=== PATIENT | male | born 1990 | race Two or more races ===

== ENCOUNTER 2021-01-27 11:58 | Emergency (ER) | payer OTHER ==
[~2021-01-27] VITALS: Ht 180.3 cm; Wt 117.9 kg
--- NOTE | 2021-01-27 12:24 | NUR ---
BB social science analyst to ER; increase agitation social workers 1. Arpita Luna [phone] 2. Yumi- [phone]
--- NOTE | 2021-01-27 12:30 | NUR ---
the patient is alert and awake x 4; admits using DRUGS he refused wanding
--- NOTE | 2021-01-27 12:30 | NUR ---
the patient refused to give urine sample and blood works
--- NOTE | 2021-01-27 12:38 | NUR ---
PT AGREED TO BLOOD DRAW AND URINE COLLECTION. INFORMED LAB TO COLLECT BLOOD
--- NOTE | 2021-01-27 12:45 | NUR ---
LAB AT BEDSIDE
--- NOTE | 2021-01-27 12:50 | NUR ---
COVID SWAB DONE AND SENT
[2021-01-27 13:26] LABS: BASOPHILS % (AUTO) 0.5 % (0.0-2.0); HEMATOCRIT 40 % (39-51); HEMOGLOBIN 13.3 g/dL (13.5-17.5); LYMPHOCYTES # (AUTO) 2.1 K/uL (0.8-4.8); LYMPHOCYTES % (AUTO) 24.7 % (20.0-44.0); MEAN CORPUSCULAR HGB CONC 34 g/dl (31.0-36.0); MEAN CORPUSCULAR VOLUME 91 fL (80-96); MONOCYTES # (AUTO) 0.5 K/uL (0.1-1.30); MONOCYTES % (AUTO) 6.4 % (2.0-12.0); NEUTROPHILS # (AUTO) 5.8 K/uL (1.8-8.9); NEUTROPHILS % (AUTO) 68.4 % (43.0-81.0); PLATELET COUNT (AUTO) 310 K/uL (150-450); RED BLOOD CELL COUNT(AUTO) 4.38 MIL/uL (4.5-6.0); WHITE BLOOD COUNT (AUTO) 8.4 K/uL (4.3-11.0)
--- NOTE | 2021-01-27 13:48 | NUR ---
URINE COLLECTED AND SENT TO THE LAB
[2021-01-27 14:04] LABS: ALANINE AMINOTRANSFERASE 48 U/L (12-78); ALBUMIN 4.1 g/dL (3.4-5.0); ALCOHOL, BLOOD < 3 mg/dL (0-0); ALKALINE PHOSPHATASE 80 U/L (46-116); BILIRUBIN,DIRECT 0.1 mg/dL (0.0-0.2); BILIRUBIN,TOTAL 0.3 mg/dL (0.2-1.0); CARBON DIOXIDE 23 mmol/L (21-32); CHLORIDE 106 mmol/L (98-107); CREATININE 0.8 mg/dL (0.6-1.3); GLUCOSE 103 mg/dL (74-106); POTASSIUM 3.6 mmol/L (3.5-5.1); SODIUM SERUM 140 mmol/L (136-145); TOTAL PROTEIN, SERUM 8.6 g/dL (6.4-8.2); UREA NITROGEN, BLOOD 11 mg/dL (7-18)
--- NOTE | 2021-01-27 14:08 | NUR ---
PATIENT WAS LISTENING TO MUSIC AND THEN HAD A SUDDEN OUTBURST. PATIENT THREW THE ED MONITORS ON THE FLOOR. PATIENT REFUSES TO COOPERATE AND RECEIVE ANY FURTHER TREATMENT. DR. JUAREZ AT BEDSIDE FOR RE-EVAL. PATIENT WALKED OUT OF THE FACILITY IN NO DISTRESS. REFUSING TO GO TO ANY PSYCH HOSPITAL AT THIS TIME.
[2021-01-27 14:10] LABS: ACETAMINOPHEN 0 ug/ml (10-30)
[2021-01-27 14:12] VITALS: BP 169/98
[2021-01-27 14:32] LABS: ASPARTATE AMINOTRANSFERASE 46 U/L (15-37); CALCIUM, SERUM 9.2 mg/dL (8.5-10.1)
== END 2021-01-27 14:13 | disposition left against medical advice (07) ==
LOC: ER 12:12
DX: R45.1 Restlessness and agitation (principal); Z20.822 Contact with and (suspected) exposure to COVID-19; Z53.29 Procedure and treatment not carried out because of patient's decision for other reasons; F20.9 Schizophrenia, unspecified; F17.200 Nicotine dependence, unspecified, uncomplicated; R03.0 Elevated blood-pressure reading, without diagnosis of hypertension
CPT/HCPCS: 36415; 80048; 80076; 80143; 80320; 85025; 87426; 99283; C9803; G0480